=== PATIENT | female | born 1975 | race Caucasian/White ===

== ENCOUNTER 2017-12-31 20:05 | Emergency (ER) | payer BC, OTHER ==
[2017-12-31 22:15] VITALS: BP 123/73
--- NOTE | 2018-01-01 01:36 | ER ---
DATE SEEN: 12/31/2017 REASON FOR VISIT: Palpitations. HISTORY OF PRESENT ILLNESS: This is a 42-year-old female who came in because of palpitations that had gone on for an hour. She has had these symptoms before, but today, they did not seem to resolve after 20 minutes or 30 minutes that typically is the way it goes. Today, also, it was associated with some mild chest pain on the left side. By the time she got to the ER, the symptoms had virtually resolved. REVIEW OF SYSTEMS: She complains of no fever, chills, or cough; neither does she have any nausea or vomiting. PAST MEDICAL HISTORY: She is healthy, with no active medical problems or medications. SOCIAL HISTORY: She does not smoke. PHYSICAL EXAMINATION: VITAL SIGNS: She is afebrile and normotensive. ENT: Normal. CHEST: Clear. MENTAL STATUS: Alert. Normal affect. LABORATORIES: Troponin is pending. Electrolytes and CBC were normal. DIAGNOSTIC DATA: EKG showed a normal sinus rhythm. IMPRESSION: 1. Palpitations. 2. Atypical chest pain. PLAN: I recommended she see a physician tomorrow or later this week to discuss perhaps a Holter monitor to determine the cause of her palpitations. Differential diagnosis, including atrial fibrillation or flutter, anxiety, and sinus tachycardia, were reviewed with the patient. /[id number]
== END 2017-12-31 21:08 | disposition home or self-care (01) ==
LOC: FB.ED 20:05
DX: R07.89 Other chest pain (principal); R00.2 Palpitations
CPT/HCPCS: 36415; 80048; 84443; 84484; 85025; 93005; 99284